=== PATIENT | female | born 1965 | race Caucasian/White ===

== ENCOUNTER 2022-05-26 08:20 | Emergency (ER) | payer SELFPAY ==
[2022-05-26 08:34] VITALS: BP 155/91; PULSE 71; RESP 18; TEMP 36.1; O2SAT 96; BMI 35.4
--- NOTE | 2022-05-26 08:54 | ED.ABDPAIN ---
HPI - Abdominal Pain General Chief Complaint: Abdominal Pain Stated Complaint: Stomach Pain Time Seen by Provider: 05/26/22 08:28 History of Present Illness HPI narrative: This 56-year-old female is Lao-speaking and needs grievance coordinator. Through the grievance coordinator she reports 2 weeks of abdominal pain and flank pain. She has symptoms of dysuria. She shows me notes from a clinic visit where she had her urine analyzed showing sign of infection with enterococcus faecalis. She has been taking penicillin but not improving. She reports some feeling warm and diaphoretic but has not measured her temperature. She arrives here with normal vital signs. Her blood pressure is a bit elevated. Related Data Home Medications Medication Instructions Recorded Confirmed amlodipine 5 mg tablet 5 mg PO DAILY 05/26/22 05/26/22 aspirin 81 mg tablet,delayed 81 mg PO DAILY 05/26/22 05/26/22 release (Adult Low Dose Aspirin) atorvastatin 80 mg tablet 80 mg PO DAILY 05/26/22 05/26/22 cetirizine 10 mg tablet 10 mg PO DAILY PRN 05/26/22 05/26/22 cholecalciferol (vitamin D3) 50 50 mcg PO DAILY 05/26/22 05/26/22 mcg (2,000 unit) capsule clobetasol 0.05 % topical cream 1 applic topical DAILY 05/26/22 05/26/22 clotrimazole-betamethasone 1 1 applic topical BID 05/26/22 05/26/22 %-0.05 % topical cream hydrochlorothiazide 25 mg tablet 25 mg PO DAILY 05/26/22 05/26/22 levothyroxine 125 mcg capsule 125 mcg PO DAILY 05/26/22 05/26/22 losartan 100 mg tablet (Cozaar) 100 mg PO DAILY 05/26/22 05/26/22 metformin 1,000 mg tablet 1,000 mg PO BID 05/26/22 05/26/22 metoprolol succinate 50 mg capsule 50 mg PO DAILY 05/26/22 05/26/22 sprinkle, ext. release 24 hr ([place] Sprinkle) nortriptyline 50 mg capsule 50 mg PO DAILY 05/26/22 05/26/22 sumatriptan succinate 50 mg tablet 50 mg PO Q2H PRN 05/26/22 05/26/22 (Imitrex) tacrolimus 0.1 % topical ointment 1 applic topical DAILY 05/26/22 05/26/22 vitamin B complex 1 cap PO DAILY 05/26/22 05/26/22 Previous Rx's Medication Instructions Recorded ketorolac 10 mg tablet 10 mg PO Q8H 5 days #15 tabs 05/26/22 ondansetron HCl 4 mg tablet 4 mg PO Q6H #20 tabs 05/26/22 Allergies Allergy/AdvReac Type Severity Reaction Status Date / Time Iodinated Contrast Media Allergy Mild Hives Verified 05/26/22 10:34 Review of Systems Status of ROS Reports: 10 or more systems reviewed and unremarkable except as noted in History and below Narrative Constitutional: No fevers, no weight gain or loss. Eyes: No discharge. No vision changes. HENT: No congestion, no sore throat, no ear pain. Cardiovascular: No chest pain, no palpitations. Respiratory: No shortness of breath, no wheezes, no cough. Gastrointestinal: No vomiting, no diarrhea. Lower abdominal pain. Genitourinary: Dysuria symptoms. Musculoskeletal: Normal range of motion. Skin: No rashes, no pruritis. Neurological: No dizziness, weakness, sensory change, speech change. Endo/Heme/Allergies: No bruising or bleeding. No polydipsia. Pysch: no suicidality, no anxiety, no insomnia. All other systems reviewed and are negative. Exam Narrative: Exam Narrative: Constitutional: Well-developed, well-nourished, no acute distress. HEENT: Normocephalic, atraumatic. Neck: Normal range of motion. Nontender. Supple. Heart: Regular. No murmurs. Normal rate. Intact distal pulses. Lungs: Clear to auscultation. No chest discomfort. No wheezes, rhonchi, or rales. Abdomen: Normal bowel sounds. No rebound tenderness. Tenderness in the lower abdomen and the flank region bilaterally. Genitalia: Deferred. Back: No midline tenderness. Normal range of motion. Extremities: Normal range of motion. No injury. Skin: Intact. No rash. Warm. No erythema or pallor. Neurologic: No altered sensation. No weakness. Alert and oriented. Psychiatric: No suicidality. No anxiety or depression. No insomnia. Nursing notes and vitals signs are reviewed. Const: Vital Signs, click to edit/add: Vital Signs - 24 hr 05/26/22 08:34 Temperature 97.0 F L Pulse Rate [Right Pulse Oximeter] 71 Respiratory Rate 18 Blood Pressure [Ri ght Upper Arm] 155/91 H Pulse Oximetry 96 Oxygen Delivery Me thod Room Air Course Vital Signs Vital signs: Initial Vital Signs Temperature 97.0 F L 05/26/22 08:34 Temperature Source Temporal Artery Scan 05/26/22 08:34 Pulse Rate 71 05/26/22 08:34 Respiratory Rate 18 05/26/22 08:34 Blood Pressure 155/91 H 05/26/22 08:34 Blood Pressure Mean 112 05/26/22 08:34 Blood Pressure Position Sitting 05/26/22 08:34 Pulse Oximetry 96 05/26/22 08:34 Oxygen Delivery Method 05/26/22 08:34 Vital Signs Temperature 97.0 F L 05/26/22 08:34 Pulse Rate 71 05/26/22 08:34 Respiratory Rate 18 05/26/22 08:34 Blood Pressure 155/91 H 05/26/22 08:34 Pulse Oximetry 96 05/26/22 08:34 Oxygen Delivery Method 05/26/22 08:34 Temperature 97.0 F L 05/26/22 08:34 Pulse Rate 71 05/26/22 08:34 Respiratory Rate 18 05/26/22 08:34 Blood Pressure 155/91 H 05/26/22 08:34 Pulse Oximetry 96 05/26/22 08:34 Oxygen Delivery Method 05/26/22 08:34 MDM - Abdominal Pain MDM Narrative Medical decision making narrative: This patient comes in reporting abdominal pain and flank pain as described above. A urinalysis was acquired initially which showed no sign of urinary tract infection or other abnormality. The patient then had an IV established and received medicines for nausea and pain including Zofran and Toradol. This brought relief to her symptoms. Lab results returned with normal findings and a CT scan without contrast also shows no acute abnormalities. These results are communicated with the patient and reassurance is were given in that regard. The patient received prescriptions for Toradol and Zofran and is encouraged to follow-up with her primary physician or return to the emergency department if pain is persistent or worsening. Lab Data Labs: Lab Results 05/26/22 05/26/22 05/26/22 Range/Units 08:53 10:35 10:35 WBC 5.67 (4.50-11.00) K/uL RBC 5.00 (4.00-5.20) m/uL Hgb 14.6 (12.0-16.0) gm/dL Hct 43.8 (33.0-51.0) % MCV 88 (80-100) fL MCH 29 (26-34) pg MCHC 33 (32-36) gm/dL RDW Coeff of [place] 12.4 (11.5-15.5) % Plt Count 424 (140-440) K/uL Neut % (Auto) 51.3 (42.0-72.0) % Lymph % (Auto) 40.2 (20-44) % [place] % (Auto) 6.0 (0.0-11.0) % Eos % (Auto) 1.4 (0.0-7.0) % Baso % (Auto) 0.7 (0.0-3.0) % Neut # (Auto) 2.91 (1.7-7.0) K/uL Lymph # (Auto) 2.28 (0.90-2.90) K/uL [place] # (Auto) 0.30 (0.00-0.90) K/UL Eos # (Auto) 0.08 (0.00-0.50) K/uL Baso # (Auto) 0.04 (0.00-0.30) K/uL Abs Immat Gran (auto) 0.02 (0.00-0.30) K/uL Sodium 138 (135-149) mmol/L Potassium 3.7 (3.6-5.1) mmol/L Chloride 99 (96-114) mmol/L Carbon Dioxide 32 (20-32) mmol/L BUN 18 (7-30) mg/dL Creatinine 0.5 (0.5-1.5) mg/dL Estimated Creat Clear 101.45 Estimated GFR 109 ml/min Glucose 113 (60-115) mg/dL Calcium 10.3 (8.4-10.6) mg/dL Urine Color Yellow (Yellow) Urine Appearance Clear (Clear) Urine pH 8.0 (5.0-8.5) Ur Specific [place] 1.020 (1.000-1.030) Urine Protein Negative (Negative) Urine Glucose (UA) Negative (Negative) Urine Ketones Negative (Negative) Urine Blood Negative (Negative) Urine Nitrite Negative (Negative) Urine Bilirubin Negative (Negative) Urine Urobilinogen 0.2 (0.2-1.0) Ur Leukocyte Esterase Negative (Negative) Urine RBC 0-2 (0-2) Urine WBC 0-2 (0-5) Ur Squamous Epith Cells Few (None-Few) Urine Bacteria None (None) Imaging Data CT scan - abdomen: Radiologist's impression: 1. No acute findings in the abdomen or pelvis. Discharge Plan Discharge Clinical Impression: Abdominal pain Patient Disposition: Home, Self-Care Condition: Stable Instructions: Abdominal Pain (ED) Additional Instructions: Take medication as needed and indicated. Follow up with primary physician if pain is persistent. Return if worsening. Prescriptions: New ondansetron HCl 4 mg tablet 4 mg PO Q6H Qty: 20 0RF ketorolac 10 mg tablet 10 mg PO Q8H 5 Days Qty: 15 0RF No Action atorvastatin 80 mg tablet 80 mg PO DAILY hydrochlorothiazide 25 mg tablet 25 mg PO DAILY nortriptyline 50 mg capsule 50 mg PO DAILY [place] Sprinkle 50 mg capsule,sprinkle,ER 24hr 50 mg PO DAILY amlodipine 5 mg tablet 5 mg PO DAILY losartan [Cozaar] 100 mg tablet 100 mg PO DAILY aspirin [Adult Low Dose Aspirin] 81 mg tablet,delayed release (DR/EC) 81 mg PO DAILY vitamin B complex Capsule 1 cap PO DAILY tacrolimus 0.1 % ointment 1 applic topical DAILY clotrimazole-betamethasone 1-0.05 % cream 1 applic topical BID clobetasol 0.05 % cream 1 applic topical DAILY cholecalciferol (vitamin D3) 50 mcg (2,000 unit) capsule 50 mcg PO DAILY cetirizine 10 mg tablet 10 mg PO DAILY PRN metformin 1,000 mg tablet 1,000 mg PO BID sumatriptan succinate [Imitrex] 50 mg tablet 50 mg PO Q2H PRN Rx Instructions: do not exceed 4 doses per 24 hrs levothyroxine 125 mcg capsule 125 mcg PO DAILY Follow Up/Referrals: Provider,Not a Local [Primary Care Provider] - Stand Alone Forms: [employer] Info Instructions
[2022-05-26 09:26] LABS: Appearance Urine Clear (Clear); Bilirubin Urine Negative (Negative); Blood Urine Negative (Negative); Color Urine Yellow (Yellow); Glucose Urine Negative (Negative); Ketones Urine Negative (Negative); Leukocyte Esterase Urine Negative (Negative); Nitrite Urine Negative (Negative); Protein Urine Negative (Negative); Urobilinogen Urine 0.2 (0.2-1.0)
[2022-05-26 09:41] LABS: RBC Urine 0-2 (0-2); Squamous Epithelial Cell Urine Few (None-Few); WBC Urine 0-2 (0-5)
--- NOTE | 2022-05-26 09:52 | CRLHL7_ITS ---
For Patients: As a result of the Century Cures Act, medical imaging exams and procedure reports are released immediately into your electronic medical record. You may view this report before your referring provider. If you have questions, please contact your health care provider. Indication: Lower abdominal pain Technique: Contrast CT abdomen and pelvis Comparison: CT abdomen and pelvis 03/09/2019 Findings: Heart size is normal. There is no pericardial effusion. Basilar atelectasis tiny low-attenuation lesion in the liver. Too small to characterize. Hepatomegaly measuring 20 cm. Cholecystectomy. Abundant stool in the colon. There is diverticulosis bowel appears unremarkable. Normal appendix kidneys appear unremarkable. The urinary bladder is unremarkable. Fat containing inguinal hernias. No suspicious bony lesions are seen. Impression: 1. No acute findings in the abdomen or pelvis. Hepatomegaly Please note that all CT scans at this facility use dose modulation, iterative reconstruction, and/or weight-based dosing when appropriate to reduce radiation dose to as low as reasonably achievable. Dictated by Pauline Reynolds MD @ 05/26/2022 11:03:08 AM (Electronically Signed)
[2022-05-26] MEDS: ONDANSETRON 2 MG/ML inj 4 MG IVP (10:40)
[2022-05-26] MEDS: KETOROLAC 30 MG/ML inj IVP (10:41)
[2022-05-26 10:49] LABS: Basophils Absolute Auto 0.04 K/uL (0.00-0.30); Basophils Percent Auto 0.7 % (0.0-3.0); Eosinophils Absolute Auto 0.08 K/uL (0.00-0.50); Eosinophils Percent Auto 1.4 % (0.0-7.0); Hematocrit 43.8 % (33.0-51.0); Hemoglobin* 14.6 gm/dL (12.0-16.0); Immature Granulocytes Abs Auto 0.02 K/uL (0.00-0.30); Lymphocytes Absolute Auto 2.28 K/uL (0.90-2.90); Lymphocytes Percent Auto 40.2 % (20-44); Mean Corpuscular HGB Conc 33 gm/dL (32-36); Mean Corpuscular Hemoglobin 29 pg (26-34); Mean Corpuscular Volume 88 fL (80-100); Neutrophils Absolute Auto 2.91 K/uL (1.7-7.0); Neutrophils Percent Auto 51.3 % (42.0-72.0); Platelet Count* 424 K/uL (140-440); RDW Coefficient of Variation % 12.4 % (11.5-15.5); White Blood Count* 5.67 K/uL (4.50-11.00)
[2022-05-26 10:52] LABS: Slide Review Reflex No
[2022-05-26 11:04] LABS: Chloride* 99 mmol/L (96-114)
[2022-05-26 11:05] LABS: Potassium* 3.7 mmol/L (3.6-5.1); Sodium* 138 mmol/L (135-149)
[2022-05-26 11:07] LABS: Carbon Dioxide* 32 mmol/L (20-32); Creatinine* 0.5 mg/dL (0.5-1.5); Est. Creatinine Clearance* 101.45; Estimated Glomerular Filt Rate 109 ml/min
[2022-05-26 11:08] LABS: Blood Urea Nitrogen* 18 mg/dL (7-30); Calcium* 10.3 mg/dL (8.4-10.6); Glucose* 113 mg/dL (60-115)
== END 2022-05-26 11:49 | disposition home or self-care (01) ==
PROVIDERS: Emergency Provider Emergency Medicine Emergency Medical Services
DX: R10.9 Unspecified abdominal pain (principal)
CPT/HCPCS: 36415; 74176; 80048; 81001; 85025; 96374; 96375; 99284; J1885; J2405

== ENCOUNTER 2022-09-26 18:30 | Emergency (ER) | payer SELFPAY ==
[2022-09-26 18:44] VITALS: BP 150/85; PULSE 75; RESP 18; TEMP 36.2; O2SAT 95
--- NOTE | 2022-09-26 19:43 | CRLHL7_ITS ---
For Patients: As a result of the Century Cures Act, medical imaging exams and procedure reports are released immediately into your electronic medical record. You may view this report before your referring provider. If you have questions, please contact your health care provider. INDICATION: Abdominal pain. TECHNIQUE: CT abdomen and pelvis without contrast. COMPARISON: May 26, 2022. FINDINGS: Lower chest: Scattered dependent atelectasis. Liver: Mild hepatomegaly with steatosis. Gallbladder and bile ducts: Cholecystectomy. Pancreas: Unremarkable. No mass or inflammation. Spleen: Normal in size. No masses. Adrenal glands: Normal in size. No nodules. Kidneys: Normal in size. No suspicious masses, stones, or hydronephrosis. GI tract: Mild colonic stool burden. Normal in caliber. No sign of mass or inflammation. Normal appendix. Vasculature: Abdominal aorta is normal in caliber. Lymph nodes: No lymphadenopathy. Peritoneum/Abdominal Wall: Tiny left fat containing inguinal hernia. No sign of mass or infiltration. No free air or significant free fluid. Pelvis: Unremarkable. No pelvic masses. Bones: Degenerative changes. IMPRESSION: No acute intra-abdominal/pelvic abnormality or significant change when compared to prior study. Persistent hepatomegaly with steatosis. Please note that all CT scans at this facility use dose modulation, iterative reconstruction, and/or weight-based dosing when appropriate to reduce radiation dose to as low as reasonably achievable. Dictated by Keny Greer MD @ 09/26/2022 8:37:14 PM (Electronically Signed)
--- NOTE | 2022-09-26 19:48 | ED_ITS ---
HPI - General Adult General Time Seen by Provider: 19:48 <Willam Ambrosio MD - Last Filed: 09/26/22 20:44> Date Seen: 09/26/22 <Willam Ambrosio MD - Last Filed: 09/26/22 20:44> Chief complaint: Abdominal Pain <Willam Ambrosio MD - Last Filed: 09/26/22 20:44> Stated complaint: Upper abdominal pain <Willam Ambrosio MD - Last Filed: 09/26/22 20:44> Time Seen by Provider: 09/26/22 19:43 <Willam Ambrosio MD - Last Filed: 09/26/22 20:44> Source: patient <Willam Ambrosio MD - Last Filed: 09/26/22 20:44> Mode of arrival: ambulatory <Willam Ambrosio MD - Last Filed: 09/26/22 20:44> Limitations: no limitations <Willam Ambrosio MD - Last Filed: 09/26/22 20:44> History of Present Illness HPI narrative: Patient is a 48-year-old female who through an staff interpreter reports that she has had some stomach upset diffusely from her epigastrium down rib periumbilical area she states she has been spitting up little strike streaks of sputum that have blood in it. She has had this before happened where was thought she had an ulcer was put on Prilosec. She is back on aspirin now if she thinks she had some kind of TIA episode in the past. I do not see record of that. The patient at this point feels pretty well other than some abdominal discomfort. She had a CT scan done in May that was unremarkable. She complains of pain today spitting up with the sputum streaked blood and no lightheadedness dizziness no chest pain, no breathing issues. No extremity problems no swelling no history of bleeding or problem bleeding problems patient is on multiple medications that are reviewed she has been on aspirin. <Willam Ambrosio MD - Last Filed: 09/26/22 20:44> Related Data Home medications: Home Medications Medication Instructions Recorded Confirmed amlodipine 5 mg tablet 5 mg PO DAILY 05/26/22 05/26/22 aspirin 81 mg tablet,delayed 81 mg PO DAILY 05/26/22 05/26/22 release (Adult Low Dose Aspirin) atorvastatin 80 mg tablet 80 mg PO DAILY 05/26/22 05/26/22 cetirizine 10 mg tablet 10 mg PO DAILY PRN 05/26/22 05/26/22 cholecalciferol (vitamin D3) 50 50 mcg PO DAILY 05/26/22 05/26/22 mcg (2,000 unit) capsule clobetasol 0.05 % topical cream 1 applic topical DAILY 05/26/22 05/26/22 clotrimazole-betamethasone 1 1 applic topical BID 05/26/22 05/26/22 %-0.05 % topical cream hydrochlorothiazide 25 mg tablet 25 mg PO DAILY 05/26/22 05/26/22 levothyroxine 125 mcg capsule 125 mcg PO DAILY 05/26/22 05/26/22 losartan 100 mg tablet (Cozaar) 100 mg PO DAILY 05/26/22 05/26/22 metformin 1,000 mg tablet 1,000 mg PO BID 05/26/22 05/26/22 metoprolol succinate 50 mg capsule 50 mg PO DAILY 05/26/22 05/26/22 sprinkle, ext. release 24 hr (Kapspargo Sprinkle) nortriptyline 50 mg capsule 50 mg PO DAILY 05/26/22 05/26/22 sumatriptan succinate 50 mg tablet 50 mg PO Q2H PRN 05/26/22 05/26/22 (Imitrex) tacrolimus 0.1 % topical ointment 1 applic topical DAILY 05/26/22 05/26/22 vitamin B complex 1 cap PO DAILY 05/26/22 05/26/22 Previous Rx's Medication Instructions Recorded ketorolac 10 mg tablet 10 mg PO Q8H 5 days #15 tabs 05/26/22 ondansetron HCl 4 mg tablet 4 mg PO Q6H #20 tabs 05/26/22 <Willam Ambrosio MD - Last Filed: 09/26/22 20:44> Allergies/adverse reactions: Allergies Allergy/AdvReac Type Severity Reaction Status Date / Time Iodinated Contrast Media Allergy Mild Hives Verified 05/26/22 10:34 <Willam Ambrosio MD - Last Filed: 09/26/22 20:44> Review of Systems Status of ROS: Reports: 10 or more systems reviewed and unremarkable except as noted in History and below <Willam Ambrosio MD - Last Filed: 09/26/22 20:44> [facility] Social History: Social History Smoking Status: Never smoker Do you use any of these nicotine containing products: None How often do you have a drink containing alcohol: never AUDIT-C Alcohol total score: 0 Non-prescribed substance use: denies use <Willam Ambrosio MD - Last Filed: 09/26/22 20:44> Exam Narrative: Exam Narrative: Objective: Patient is alert orient x3 very pleasant Vital signs are unremarkable slightly hypertensive HEENT unremarkable no skin pale conjunctiva neck is supple chest is clear pulse regular abdomen benign soft mild epigastric tenderness and mild periumbilical tenderness. No masses no rebound. Extremities normal Neurologic nonfocal Good peripheral perfusion noted <Willam Ambrosio MD - Last Filed: 09/26/22 20:44> Const: Vital Signs, click to edit/add: Vital Signs - 24 hr 09/26/22 18:44 09/26/22 22:55 Temperature 97.1 F L Pulse Rate [Right Pulse Oximeter] 75 74 Respiratory Rate 18 18 Blood Pressure [Ri ght Upper Arm] 150/85 H 145/72 H Pulse Oximetry 95 95 Oxygen Delivery Me thod Room Air Room Air <Willam Ambrosio MD - Last Filed: 09/26/22 20:44> Vital Signs, click to edit/add: Vital Signs - 24 hr 09/26/22 18:44 09/26/22 22:55 Temperature 97.1 F L Pulse Rate [Right Pulse Oximeter] 75 74 Respiratory Rate 18 18 Blood Pressure [Ri ght Upper Arm] 150/85 H 145/72 H Pulse Oximetry 95 95 Oxygen Delivery Me thod Room Air Room Air <Derrick Nazario MD - Last Filed: 09/27/22 03:06> Course Vital Signs Vital signs: Initial Vital Signs Temperature 97.1 F L 09/26/22 18:44 Temperature Source Temporal Artery Scan 09/26/22 18:44 Pulse Rate 75 09/26/22 18:44 Respiratory Rate 18 09/26/22 18:44 Blood Pressure 150/85 H 09/26/22 18:44 Blood Pressure Mean 106 09/26/22 18:44 Blood Pressure Position Sitting 09/26/22 18:44 Pulse Oximetry 95 09/26/22 18:44 Oxygen Delivery Method 09/26/22 18:44 Vital Signs Temperature 97.1 F L 09/26/22 18:44 Pulse Rate 75 09/26/22 18:44 Respiratory Rate 18 09/26/22 18:44 Blood Pressure 150/85 H 09/26/22 18:44 Pulse Oximetry 95 09/26/22 18:44 Oxygen Delivery Method 09/26/22 18:44 Temperature 97.1 F L 09/26/22 18:44 Pulse Rate 74 09/26/22 22:55 Respiratory Rate 18 09/26/22 22:55 Blood Pressure 145/72 H 09/26/22 22:55 Pulse Oximetry 95 09/26/22 22:55 Oxygen Delivery Method 09/26/22 22:55 <Willam Ambrosio MD - Last Filed: 09/26/22 20:44> Initial Vital Signs Temperature 97.1 F L 09/26/22 18:44 Temperature Source Temporal Artery Scan 09/26/22 18:44 Pulse Rate 75 09/26/22 18:44 Respiratory Rate 18 09/26/22 18:44 Blood Pressure 150/85 H 09/26/22 18:44 Blood Pressure Mean 106 09/26/22 18:44 Blood Pressure Position Sitting 09/26/22 18:44 Pulse Oximetry 95 09/26/22 18:44 Oxygen Delivery Method 09/26/22 18:44 Vital Signs Temperature 97.1 F L 09/26/22 18:44 Pulse Rate 75 09/26/22 18:44 Respiratory Rate 18 09/26/22 18:44 Blood Pressure 150/85 H 09/26/22 18:44 Pulse Oximetry 95 09/26/22 18:44 Oxygen Delivery Method 09/26/22 18:44 Temperature 97.1 F L 09/26/22 18:44 Pulse Rate 74 09/26/22 22:55 Respiratory Rate 18 09/26/22 22:55 Blood Pressure 145/72 H 09/26/22 22:55 Pulse Oximetry 95 09/26/22 22:55 Oxygen Delivery Method 09/26/22 22:55 <Derrick Nazario MD - Last Filed: 09/27/22 03:06> Medical Decision Making MDM Narrative Medical decision making narrative: Patient is a 48-year-old female who through an staff interpreter reports she has had what sounds like some upper gastrointestinal bleeding. But she has had a diagnosed per presumed diagnosis of ulcer in the past been on Prilosec, she is now back on aspirin. I think at this point given her abdominal pain to be reasonable to repeat her labs, make sure her gallbladder labs look reassuring including liver function tests amylase. Will also check a CBC herminia ctrolytes and a CT scan of her abdomen and pelvis . she has had a tubal ligation. Will start the workup above if this all comes back unrevealing I think she could probably be discharged on Prilosec and would hold her aspirin. And follow-up with primary care doctor within the next few days Addendum: The patient has a negative CT scan, Dr. Gomez will follow up the labs, these are normal I would have her hold her aspirin, start the Prilosec 20 b.i.d. and see her doctor in a couple of days light activity. <Willam Ambrosio MD - Last Filed: 09/26/22 20:44> Patient is a 48-year-old female who through an staff interpreter reports she has had what sounds like some upper gastrointestinal bleeding. But she has had a diagnosed per presumed diagnosis of ulcer in the past been on Prilosec, she is now back on aspirin. I think at this point given her abdominal pain to be reasonable to repeat her labs, make sure her gallbladder labs look reassuring including liver function tests amylase. Will also check a CBC electrolytes and a CT scan of her abdomen and pelvis . she has had a tubal ligation. Will start the workup above if this all comes back unrevealing I think she could probably be discharged on Prilosec and would hold her aspirin. And follow-up with primary care doctor within the next few days Addendum: The patient has a negative CT scan, Dr. Gomez will follow up the labs, these are normal I would have her hold her aspirin, start the Prilosec 20 b.i.d. and see her doctor in a couple of days light activity. Review of labs shows them to be mostly unremarkable. Potassium was 3.3 which Ms. Saleem says is not necessarily atypical noting that is often a little low. I do review some of her symptoms. This epigastric discomfort it has occurred before. She has been told for pain is to take what looks to be a 10 mg capsule of omeprazole. She does not take it regularly. CT imaging and generalized mily wel pain along with what I initially understood was some rectal passage bleeding, suggests constipation. She does acknowledge she does struggle with this sometimes. Significant stressor this last year was the of their son Gilmer. She does receive cares from [facility] in [facility] and is uninsured for healthcare. I would anticipate her following up in primary care after 2 weeks of regular PPI use. Will work also to soften stools. Possible that some of her pain is also related to fatty liver. <Derrick Nazario MD - Last Filed: 09/27/22 03:06> Lab Data Labs: Lab Results 09/26/22 09/26/22 09/26/22 Range/Units 20:20 20:20 20:20 WBC 6.88 (4.50-11.00) K/uL RBC 4.92 (4.00-5.20) m/uL Hgb 14.4 (12.0-16.0) gm/dL Hct 42.6 (33.0-51.0) % MCV 87 (80-100) fL MCH 29 (26-34) pg MCHC 34 (32-36) gm/dL RDW Coeff of [place] 12.0 (11.5-15.5) % Plt Count 379 (140-440) K/uL Neut % (Auto) 47.3 (42.0-72.0) % Lymph % (Auto) 42.9 (20-44) % [place] % (Auto) 7.1 (0.0-11.0) % Eos % (Auto) 1.9 (0.0-7.0) % Baso % (Auto) 0.7 (0.0-3.0) % Neut # (Auto) 3.25 (1.7-7.0) K/uL Lymph # (Auto) 2.95 H (0.90-2.90) K/uL [place] # (Auto) 0.50 (0.00-0.90) K/UL Eos # (Auto) 0.13 (0.00-0.50) K/uL Baso # (Auto) 0.05 (0.00-0.30) K/uL INR 0.93 (0.91-1.10) APTT 37 H (23-33) Seconds Sodium 140 (135-149) mmol/L Potassium 3.3 L (3.6-5.1) mmol/L Chloride 103 (96-114) mmol/L Carbon Dioxide 29 (20-32) mmol/L BUN 20 (7-30) mg/dL Creatinine 0.4 L (0.5-1.5) mg/dL Estimated GFR 115 ml/min Glucose 104 (60-115) mg/dL Calcium 10.6 (8.4-10.6) mg/dL Total Bilirubin 1.1 (0.1-1.5) mg/dL Direct Bilirubin 0.1 (0.0-0.5) mg/dL AST 35 (12-35) U/L ALT 48 H (4-35) U/L Alkaline Phosphatase 93 (40-150) U/L C-Reactive Protein < 0.5 L (0.5-1.0) mg/dL Total Protein 7.9 (6.0-8.3) g/dL Albumin 4.9 (3.3-5.0) g/dL Amylase 77 (18-89) U/L <Willam Ambrosio MD - Last Filed: 09/26/22 20:44> Lab Results 09/26/22 09/26/22 09/26/22 Range/Units 20:20 20:20 20:20 WBC 6.88 (4.50-11.00) K/uL RBC 4.92 (4.00-5.20) m/uL Hgb 14.4 (12.0-16.0) gm/dL Hct 42.6 (33.0-51.0) % MCV 87 (80-100) fL MCH 29 (26-34) pg MCHC 34 (32-36) gm/dL RDW Coeff of [place] 12.0 (11.5-15.5) % Plt Count 379 (140-440) K/uL Neut % (Auto) 47.3 (42.0-72.0) % Lymph % (Auto) 42.9 (20-44) % [place] % (Auto) 7.1 (0.0-11.0) % Eos % (Auto) 1.9 (0.0-7.0) % Baso % (Auto) 0.7 (0.0-3.0) % Neut # (Auto) 3.25 (1.7-7.0) K/uL Lymph # (Auto) 2.95 H (0.90-2.90) K/uL [place] # (Auto) 0.50 (0.00-0.90) K/UL Eos # (Auto) 0.13 (0.00-0.50) K/uL Baso # (Auto) 0.05 (0.00-0.30) K/uL INR 0.93 (0.91-1.10) APTT 37 H (23-33) Seconds Sodium 140 (135-149) mmol/L Potassium 3.3 L (3.6-5.1) mmol/L Chloride 103 (96-114) mmol/L Carbon Dioxide 29 (20-32) mmol/L BUN 20 (7-30) mg/dL Creatinine 0.4 L (0.5-1.5) mg/dL Estimated GFR 115 ml/min Glucose 104 (60-115) mg/dL Calcium 10.6 (8.4-10.6) mg/dL Total Bilirubin 1.1 (0.1-1.5) mg/dL Direct Bilirubin 0.1 (0.0-0.5) mg/dL AST 35 (12-35) U/L ALT 48 H (4-35) U/L Alkaline Phosphatase 93 (40-150) U/L C-Reactive Protein < 0.5 L (0.5-1.0) mg/dL Total Protein 7.9 (6.0-8.3) g/dL Albumin 4.9 (3.3-5.0) g/dL Amylase 77 (18-89) U/L <Derrick Nazario MD - Last Filed: 09/27/22 03:06> Discharge Plan Discharge Clinical Impression: Abdominal pain, Constipation, Gastritis <Willam Ambrosio MD - Last Filed: 09/26/22 20:44> Patient Disposition: Home w/ Parent or Adult <Willam Ambrosio MD - Last Filed: 09/26/22 20:44> Condition: Stable <Willam Ambrosio MD - Last Filed: 09/26/22 20:44> Additional Instructions: Don't take aspirin for the next week. Avoid ibuprofen and naproxen for now as well if possible. All of these can irritate your stomach. It sounds as though you should continue though over the long-term with aspirin. Take your Prilosec (omeprazole) 20 mg 2 times a day for the next 2 weeks. If you take your 10 mg pills, take 4 over the course of the day. You can purchase more [id number] if necessary. You might need to be screened for H pylori which you can discuss with your primary care provider. For breakthrough burning pain in your upper abdomen, consider famotidine or liquid antacid/anti-gas for more immediate relief. Follow-up with primary care provider at the end of this 2 week period or sooner if you are becoming more uncomfortable, bleeding is increasing, repeated vomiting. Your abdominal discomfort might also be helped by increasing her water intake. Try to drink 2-3 L of water daily. I would also consider taking MiraLax equivalent, 2 doses by noon and adjust to stool consistency. No tome aspirina louis la pr?xima semana. Evite el ibuprofeno y el naproxeno por ahora tambi?n si es posible. Todo esto puede irritar [place] est?slava. Parece que debe continuar a shobha plazo con aspirina. [place] Prilosec (omeprazol) 20 mg 2 veces al d?a louis las pr?ximas 2 semanas. Si shadi debbie p?ldoras de 10 mg, tome 4 en el transcurso del d?a. Puede comprar m?s sin receta si es necesario. Es posible que deba hacerse bharat prueba de detecci?n de H. pylori, lo cual puede analizar con [place] proveedor de atenci?n primaria. Para el dolor ardiente irruptivo en la parte superior del abdomen, considere la famotidina o el anti?cido l?quido / antigas para un alivio m?s inmediato. Seguimiento con el proveedor de atenci?n primaria al final de trent per?odo de 2 semanas o antes si se siente m?s inc?modo, el sangrado est? aumentando, v?mitos repetidos. [place] malestar abdominal tambi?n podr?a ser ayudado por el aumento de [place] consumo de agua. Trate de beber 2-3 L de agua al d?a. Tambi?n considerar?a jasen MiraLax equivalente, 2 dosis antes del mediod?a y ajustarme a la consistencia de las heces. <Willam Ambrosio MD - Last Filed: 09/26/22 20:44> Activity Level: Light activity <Willam Ambrosio MD - Last Filed: 09/26/22 20:44> Light activity <Derrick Nazario MD - Last Filed: 09/27/22 03:06> Discharge Diet: Full Liquid <Willam Ambrosio MD - Last Filed: 09/26/22 20:44> Full Liquid <Derrick Nazario MD - Last Filed: 09/27/22 03:06> Prescriptions: No Action atorvastatin 80 mg tablet 80 mg PO DAILY hydrochlorothiazide 25 mg tablet 25 mg PO DAILY nortriptyline 50 mg capsule 50 mg PO DAILY Kapspargo Sprinkle 50 mg capsule,sprinkle,ER 24hr 50 mg PO DAILY amlodipine 5 mg tablet 5 mg PO DAILY losartan [Cozaar] 100 mg tablet 100 mg PO DAILY aspirin [Adult Low Dose Aspirin] 81 mg tablet,delayed release (DR/EC) 81 mg PO DAILY vitamin B complex Capsule 1 cap PO DAILY tacrolimus 0.1 % ointment 1 applic topical DAILY clotrimazole-betamethasone 1-0.05 % cream 1 applic topical BID clobetasol 0.05 % cream 1 applic topical DAILY cholecalciferol (vitamin D3) 50 mcg (2,000 unit) capsule 50 mcg PO DAILY cetirizine 10 mg tablet 10 mg PO DAILY PRN metformin 1,000 mg tablet 1,000 mg PO BID sumatriptan succinate [Imitrex] 50 mg tablet 50 mg PO Q2H PRN Rx Instructions: do not exceed 4 doses per 24 hrs levothyroxine 125 mcg capsule 125 mcg PO DAILY ondansetron HCl 4 mg tablet 4 mg PO Q6H Qty: 20 0RF ketorolac 10 mg tablet 10 mg PO Q8H 5 Days Qty: 15 0RF <Willam Ambrosio MD - Last Filed: 09/26/22 20:44> Follow Up/Referrals: Provider,Not a Local [Primary Care Provider] - <Willam Ambrosio MD - Last Filed: 09/26/22 20:44> Stand Alone Forms: [facility] Info Instructions <Willam Ambrosio MD - Last Filed: 09/26/22 20:44>
[2022-09-26] MEDS: PANTOPRAZOLE SODIUM 40 MG INJ IVP (20:27)
[2022-09-26] MEDS: 0.9 % SODIUM CHLORIDE 1000 ml 1,000 ML 6000 ML IV (20:27)
[2022-09-26 20:37] LABS: Basophils Absolute Auto 0.05 K/uL (0.00-0.30); Basophils Percent Auto 0.7 % (0.0-3.0); Eosinophils Absolute Auto 0.13 K/uL (0.00-0.50); Eosinophils Percent Auto 1.9 % (0.0-7.0); Hematocrit 42.6 % (33.0-51.0); Hemoglobin* 14.4 gm/dL (12.0-16.0); Immature Granulocytes Abs Auto 0.01 K/uL (0.00-0.30); Immature Granulocytes Pct Auto 0.1 %; Lymphocytes Absolute Auto 2.95 K/uL (0.90-2.90); Lymphocytes Percent Auto 42.9 % (20-44); Mean Corpuscular HGB Conc 34 gm/dL (32-36); Mean Corpuscular Hemoglobin 29 pg (26-34); Mean Corpuscular Volume 87 fL (80-100); Monocytes Percent Auto 7.1 % (0.0-11.0); Neutrophils Absolute Auto 3.25 K/uL (1.7-7.0); Neutrophils Percent Auto 47.3 % (42.0-72.0); Platelet Count* 379 K/uL (140-440); Red Blood Count 4.92 m/uL (4.00-5.20); White Blood Count* 6.88 K/uL (4.50-11.00)
[2022-09-26 20:53] LABS: Albumin* 4.9 g/dL (3.3-5.0); Chloride* 103 mmol/L (96-114); Slide Review Reflex No; Sodium* 140 mmol/L (135-149)
[2022-09-26 20:54] LABS: Potassium* 3.3 mmol/L (3.6-5.1)
[2022-09-26 20:56] LABS: Amylase* 77 U/L (18-89)
[2022-09-26 20:57] LABS: Alanine Aminotransferase* 48 U/L (4-35); Alkaline Phosphatase* 93 U/L (40-150); Aspartate Amino Transferase* 35 U/L (12-35); Bilirubin Direct* 0.1 mg/dL (0.0-0.5); Bilirubin Total* 1.1 mg/dL (0.1-1.5); Blood Urea Nitrogen* 20 mg/dL (7-30); Calcium* 10.6 mg/dL (8.4-10.6); Carbon Dioxide* 29 mmol/L (20-32); Creatinine* 0.4 mg/dL (0.5-1.5); Estimated Glomerular Filt Rate 115 ml/min; Glucose* 104 mg/dL (60-115); INR 0.93 (0.91-1.10); Total Protein* 7.9 g/dL (6.0-8.3)
[2022-09-26 20:58] LABS: Partial Thromboplastin Time* 37 Seconds (23-33)
[2022-09-26 21:01] LABS: C Reactive Protein* < 0.5 mg/dL (0.5-1.0)
[2022-09-26 22:55] VITALS: BP 145/72; PULSE 74; RESP 18; O2SAT 95
== END 2022-09-26 22:57 | disposition home or self-care (01) ==
LOC: ED 20:03
PROVIDERS: Emergency Provider Family Medicine
DX: R10.9 Unspecified abdominal pain (principal); K59.00 Constipation, unspecified; K29.70 Gastritis, unspecified, without bleeding
CPT/HCPCS: 36415; 74176; 80048; 80076; 82150; 85025; 85610; 85730; 86140; 96374; 99283; 99284; C9113; J7030

== ENCOUNTER 2023-07-29 16:42 | Emergency (ER) | payer OTHER, SELFPAY ==
[2023-07-29 17:27] VITALS: BP 118/77; PULSE 76; RESP 16; TEMP 36.1; O2SAT 98
--- NOTE | 2023-07-29 18:33 | ED.GENADULT ---
HPI - General Adult General Date Seen: 07/29/23 Chief complaint: Eye Problems Stated complaint: eye pain Time Seen by Provider: 07/29/23 17:48 Source: patient and humanities instructor Mode of arrival: ambulatory Limitations: language barrier History of Present Illness HPI narrative: Patient is a 57-year-old woman, Ecuadorean speaking, who presents for evaluation of eye symptoms. She says 3 days ago she noted black spots in her vision, the seem to move around, does not describe complete vision loss or field cut. Yesterday she started to get pain in the eye as well. She was diagnosed with COVID a couple of weeks ago, she still has little bit of a cough and coughing makes the eye pain worse. She denies any trauma to the eye. She has noted a little bit of redness, no mattering. Denies history of problems with her eyes, she has reading glasses but otherwise no visual correction. Multiple medical problems including diabetes, hypertension, high cholesterol and migraine. Related Data Home Medications Medication Instructions Recorded Confirmed amlodipine 5 mg tablet 5 mg PO DAILY 05/26/22 07/29/23 aspirin 81 mg tablet,delayed 81 mg PO DAILY 05/26/22 07/29/23 release (Adult Low Dose Aspirin) atorvastatin 80 mg tablet 80 mg PO DAILY 05/26/22 07/29/23 cetirizine 10 mg tablet 10 mg PO DAILY PRN 05/26/22 07/29/23 cholecalciferol (vitamin D3) 50 50 mcg PO DAILY 05/26/22 07/29/23 mcg (2,000 unit) capsule hydrochlorothiazide 25 mg tablet 25 mg PO DAILY 05/26/22 07/29/23 levothyroxine 125 mcg capsule 125 mcg PO DAILY 05/26/22 05/26/22 losartan 100 mg tablet (Cozaar) 100 mg PO DAILY 05/26/22 07/29/23 metformin 1,000 mg tablet 1,000 mg PO BID 05/26/22 05/26/22 metoprolol succinate 50 mg capsule 50 mg PO DAILY 05/26/22 05/26/22 sprinkle, ext. release 24 hr (Kapspargo Sprinkle) nortriptyline 50 mg capsule 50 mg PO DAILY 05/26/22 07/29/23 sumatriptan succinate 50 mg tablet 50 mg PO Q2H PRN 05/26/22 07/29/23 (Imitrex) tacrolimus 0.1 % topical ointment 1 applic topical DAILY 05/26/22 05/26/22 vitamin B complex 1 cap PO DAILY 05/26/22 05/26/22 etanercept 50 mg/mL (1 mL) 50 mg subcut 07/29/23 subcutaneous syringe (Enbrel) levothyroxine 125 mcg tablet 125 mcg PO QAM 07/29/23 07/29/23 liraglutide 0.6 mg/0.1 mL (18 mg/3 mg subcut 07/29/23 mL) subcutaneous pen injector (Gera-ITza 3-Alcon) metoprolol succinate 50 mg 50 mg PO DAILY 07/29/23 07/29/23 tablet,extended release 24 hr omeprazole 20 mg capsule,delayed 20 mg PO BID 07/29/23 07/29/23 release pen needle, diabetic 32 gauge x 07/29/23 07/29/23 (TechLITE Pen Needle) tamsulosin 0.4 mg capsule 0.4 mg PO DAILY 07/29/23 07/29/23 vitamin B complex-folic acid 0.4 1 tab PO DAILY 07/29/23 07/29/23 mg tablet Allergies Allergy/AdvReac Type Severity Reaction Status Date / Time Iodinated Contrast Media Allergy Mild Hives Verified 07/29/23 17:45 Review of Systems Status of ROS: Reports: 6 or more systems reviewed and unremarkable except as noted in History and below [facility] Social History Smoking Status: Never smoker Do you use any of these nicotine containing products: None Second hand tobacco smoke exposure: No How often do you have a drink containing alcohol: never AUDIT-C Alcohol total score: 0 Non-prescribed substance use: denies use Exam Narrative: Exam Narrative: Vital signs reviewed. She is not significantly hypertensive. Visual acuity, 20/30 on the left, 20/70 on the right. In general, alert, nontoxic woman, looks comfortable. Head: Normocephalic, atraumatic. Eyes: No significant conjunctival injection on the right. Extraocular movements are full, pupils are equal and reactive bilaterally. ENT: No facial trauma, nares clear. Skin: Warm and dry, no erythema, rash or edema. Const: Vital Signs, click to edit/add: Vital Signs - 24 hr 07/29/23 17:27 Temperature 96.9 F L Pulse Rate [Pulse Oximeter] 76 Respiratory Rate 16 Blood Pressure [Ri ght Upper Arm] 118/77 Pulse Oximetry 98 Oxygen Delivery Me thod Room Air Documenting provider has reviewed patient's vital signs: yes Course Course ED Course: I did do a fluorescein exam, I do not see any defect on the cornea, no significant abnormalities on slit-lamp exam. I did talk with the on-call gi technician at [facility] as think this patient should be further evaluated in eye clinic. She will see her tomorrow morning at 8:15 a.m.. Diagnostic considerations include retinal vein occlusion, vitreous hemorrhage, would doubt retinal artery occlusion given pain though she certainly has multiple risk factors for vascular disease. No evidence of acute angle closure glaucoma. Tylenol if needed for pain, follow-up tomorrow as scheduled. Vital Signs Vital signs: Initial Vital Signs Temperature 96.9 F L 07/29/23 17:27 Temperature Source Temporal Artery Scan 07/29/23 17:27 Pulse Rate 76 07/29/23 17:27 Respiratory Rate 16 07/29/23 17:27 Blood Pressure 118/77 07/29/23 17:27 Blood Pressure Mean 90 07/29/23 17:27 Blood Pressure Position Sitting 07/29/23 17:27 Pulse Oximetry 98 07/29/23 17:27 Oxygen Delivery Method Room Air 07/29/23 17:27 Vital Signs Temperature 96.9 F L 07/29/23 17:27 Pulse Rate 76 07/29/23 17:27 Respiratory Rate 16 07/29/23 17:27 Blood Pressure 118/77 07/29/23 17:27 Pulse Oximetry 98 07/29/23 17:27 Oxygen Delivery Method Room Air 07/29/23 17:27 Temperature 96.9 F L 07/29/23 17:27 Pulse Rate 76 07/29/23 17:27 Respiratory Rate 16 07/29/23 17:27 Blood Pressure 118/77 07/29/23 17:27 Pulse Oximetry 98 07/29/23 17:27 Oxygen Delivery Method Room Air 07/29/23 17:27 Discharge Plan Discharge Clinical Impression: Decreased visual acuity, Eye pain Patient Disposition: Home, Self-Care Condition: Stable Instructions: Eye Pain (ED) Additional Instructions: I have made you an appointment to be seen by an resource management specialist at [facility] in [place] so that they can do a more thorough evaluation of your eye. Cause for your symptoms at this time is not clear. Ok to use Tylenol, or Ibuprofen if you tolerate it, as needed for pain. Prescriptions: No Action atorvastatin 80 mg tablet 80 mg PO DAILY Hold Instructions: hydrochlorothiazide 25 mg tablet 25 mg PO DAILY Hold Instructions: nortriptyline 50 mg capsule 50 mg PO DAILY Hold Instructions: Kapspargo Sprinkle 50 mg capsule,sprinkle,ER 24hr 50 mg PO DAILY Hold Instructions: amlodipine 5 mg tablet 5 mg PO DAILY Hold Instructions: losartan [Cozaar] 100 mg tablet 100 mg PO DAILY Hold Instructions: aspirin [Adult Low Dose Aspirin] 81 mg tablet,delayed release (DR/EC) 81 mg PO DAILY Hold Instructions: vitamin B complex Capsule 1 cap PO DAILY Hold Instructions: tacrolimus 0.1 % ointment 1 applic topical DAILY Hold Instructions: cholecalciferol (vitamin D3) 50 mcg (2,000 unit) capsule 50 mcg PO DAILY Hold Instructions: cetirizine 10 mg tablet 10 mg PO DAILY PRN Hold Instructions: metformin 1,000 mg tablet 1,000 mg PO BID Hold Instructions: sumatriptan succinate [Imitrex] 50 mg tablet 50 mg PO Q2H PRN Hold Instructions: Rx Instructions: do not exceed 4 doses per 24 hrs levothyroxine 125 mcg capsule 125 mcg PO DAILY Hold Instructions: Enbrel 50 mg/mL (1 mL) syringe 50 mg subcut Victoza 3-Alcon 0.6 mg/0.1 mL (18 mg/3 mL) pen injector subcut metoprolol succinate 50 mg tablet extended release 24 hr 50 mg PO DAILY tamsulosin 0.4 mg capsule 0.4 mg PO DAILY levothyroxine 125 mcg tablet 125 mcg PO QAM omeprazole 20 mg capsule,delayed release(DR/EC) 20 mg PO BID vitamin B complex-folic acid 0.4 mg tablet 1 tab PO DAILY (DME) pen needle, diabetic [TechLITE Pen Needle] 32 gauge x 5/32 needle MISCELLANEOUS DIRECTED Follow Up/Referrals: Provider,Not a Local [Primary Care Provider] - Stand Alone Forms: [facility] Info Instructions
== END 2023-07-29 18:40 | disposition home or self-care (01) ==
PROVIDERS: Emergency Provider Emergency Medicine
DX: H54.7 Unspecified visual loss (principal)
CPT/HCPCS: 99283; 99284

== ENCOUNTER 2024-01-13 17:52 | Emergency (ER) | payer OTHER, SELFPAY ==
[2024-01-13 17:58] VITALS: BP 156/90; PULSE 92; RESP 18; TEMP 36.6; O2SAT 93; BMI 36.3
--- NOTE | 2024-01-13 18:24 | ED.GENADULT ---
HPI - General Adult General Date Seen: 01/13/24 Chief complaint: Extremity Pain/Injury, Upper Stated complaint: Lac L finger Time Seen by Provider: 01/13/24 17:56 Source: patient, RN notes reviewed and form presser Mode of arrival: ambulatory Limitations: no limitations History of Present Illness HPI narrative: This 58-year-old female is coming in with concerns of bleeding from her left 4th finger. She goes to [facility]. She noted about a month ago that she started to have a red lesion on her finger. She popped it with a needle, did bleed for about 5 hours. It is not really painful. She wonders if she needs antibiotics because she put an insulin needle in this. She did go to her clinic, they told her that they could not do anything about it, are referring her to Dermatology. She states she has a dermatology appointment February 08 I believe. No fevers. She does have underlying diabetes. Related Data Home Medications Medication Instructions Recorded Confirmed amlodipine 5 mg tablet 5 mg PO DAILY 05/26/22 01/13/24 aspirin 81 mg tablet,delayed 81 mg PO DAILY 05/26/22 01/13/24 release (Adult Low Dose Aspirin) atorvastatin 80 mg tablet 80 mg PO DAILY 05/26/22 01/13/24 cetirizine 10 mg tablet 10 mg PO DAILY PRN 05/26/22 01/13/24 cholecalciferol (vitamin D3) 50 50 mcg PO DAILY 05/26/22 01/13/24 mcg (2,000 unit) capsule hydrochlorothiazide 25 mg tablet 25 mg PO DAILY 05/26/22 01/13/24 levothyroxine 125 mcg capsule 125 mcg PO DAILY 05/26/22 01/13/24 losartan 100 mg tablet (Cozaar) 100 mg PO DAILY 05/26/22 01/13/24 metformin 1,000 mg tablet 1,000 mg PO BID 05/26/22 01/13/24 metoprolol succinate 50 mg capsule 50 mg PO DAILY 05/26/22 01/13/24 sprinkle, ext. release 24 hr (Kapspargo Sprinkle) nortriptyline 50 mg capsule 50 mg PO DAILY 05/26/22 01/13/24 sumatriptan succinate 50 mg tablet 50 mg PO Q2H PRN 05/26/22 01/13/24 (Imitrex) vitamin B complex 1 cap PO DAILY 05/26/22 01/13/24 etanercept 50 mg/mL (1 mL) 50 mg subcut 07/29/23 subcutaneous syringe (Enbrel) levothyroxine 125 mcg tablet 125 mcg PO QAM 07/29/23 01/13/24 liraglutide 0.6 mg/0.1 mL (18 mg/3 mg subcut 07/29/23 mL) subcutaneous pen injector (Victoza 3-Alcon) metoprolol succinate 50 mg 50 mg PO DAILY 07/29/23 01/13/24 tablet,extended release 24 hr omeprazole 20 mg capsule,delayed 20 mg PO BID 07/29/23 01/13/24 release pen needle, diabetic 32 gauge x 07/29/23 01/13/24 (TechLITE Pen Needle) vitamin B complex-folic acid 0.4 1 tab PO DAILY 07/29/23 01/13/24 mg tablet etanercept 50 mg/mL (1 mL) 50 mg subcut 01/13/24 subcutaneous pen injector (Enbrel SureClick) valacyclovir 1 gram tablet 1,000 mg PO DAILY acid reflux 01/13/24 01/13/24 (Valtrex) Allergies Allergy/AdvReac Type Severity Reaction Status Date / Time Iodinated Contrast Media Allergy Mild Hives Verified 01/13/24 18:13 Review of Systems Narrative: As per HPI. [facility] Social History Smoking Status: Never smoker Do you use any of these nicotine containing products: None Second hand tobacco smoke exposure: No How often do you have a drink containing alcohol: never AUDIT-C Alcohol total score: 0 Non-prescribed substance use: denies use Exam Const: Vital Signs, click to edit/add: Vital Signs - 24 hr 01/13/24 17:58 Temperature 97.8 F Pulse Rate [Pulse Oximeter] 92 Respiratory Rate 18 Blood Pressure [Ri ght Upper Arm] 156/90 H Pulse Oximetry 93 Oxygen Delivery Me thod Room Air Patient is a very pleasant 58-year-old female that is ambulatory into the ED of her own accord. On the proximal portion of the middle phalanx on her left hand, 4th finger, there is a central erythematous, purplish lesion that looks to be consistent with a pyogenic granuloma. She has full mobility of this finger. This seems to be superficial, no active bleeding at this time. There is no surrounding erythema, no evidence of any secondary infection. Documenting provider has reviewed patient's vital signs: yes Course Course ED Course: Reviewed with patient that this most definitely appears to be a pyogenic granuloma, this will need to be managed by Dermatology. This is not something we would take off here in the ER. We did discuss that I certainly understand that these lesions can bleed and will bleed. She is simply going to have to use bandages and pressure when there was bleeding. I have no way to expedite a dermatology appointment for her. We discussed not picking at it, not poking it with needles. There is no evidence of infection at this time. Antibiotics are not required as there is no infection. Vital Signs Vital signs: Initial Vital Signs Temperature 97.8 F 01/13/24 17:58 Temperature Source Temporal Artery Scan 01/13/24 17:58 Pulse Rate 92 01/13/24 17:58 Respiratory Rate 18 01/13/24 17:58 Blood Pressure 156/90 H 01/13/24 17:58 Blood Pressure Mean 112 H 01/13/24 17:58 Blood Pressure Position Sitting 01/13/24 17:58 Pulse Oximetry 93 01/13/24 17:58 Oxygen Delivery Method Room Air 01/13/24 17:58 Vital Signs Temperature 97.8 F 01/13/24 17:58 Pulse Rate 92 01/13/24 17:58 Respiratory Rate 18 01/13/24 17:58 Blood Pressure 156/90 H 01/13/24 17:58 Pulse Oximetry 93 01/13/24 17:58 Oxygen Delivery Method Room Air 01/13/24 17:58 Temperature 97.8 F 01/13/24 17:58 Pulse Rate 92 01/13/24 17:58 Respiratory Rate 18 01/13/24 17:58 Blood Pressure 156/90 H 01/13/24 17:58 Pulse Oximetry 93 01/13/24 17:58 Oxygen Delivery Method Room Air 01/13/24 17:58 Discharge Plan Discharge Clinical Impression: Lesion of finger Condition: Stable Additional Instructions: This lesion on your finger appears to be consistent with a pyogenic granuloma. This is a benign lesion but certainly does bleed as it is vascular. You need to apply pressure if it does start bleeding, use bandages to try to protect this so you do not bump it during the day. You are going to have to go back to Dermatology to have this taken care of. We do not do this sort of removal in the ER. Prescriptions: No Action atorvastatin 80 mg tablet 80 mg PO DAILY Hold Instructions: hydrochlorothiazide 25 mg tablet 25 mg PO DAILY Hold Instructions: nortriptyline 50 mg capsule 50 mg PO DAILY Hold Instructions: Kapspargo Sprinkle 50 mg capsule,sprinkle,ER 24hr 50 mg PO DAILY Hold Instructions: amlodipine 5 mg tablet 5 mg PO DAILY Hold Instructions: losartan [Cozaar] 100 mg tablet 100 mg PO DAILY Hold Instructions: aspirin [Adult Low Dose Aspirin] 81 mg tablet,delayed release (DR/EC) 81 mg PO DAILY Hold Instructions: vitamin B complex Capsule 1 cap PO DAILY Hold Instructions: cholecalciferol (vitamin D3) 50 mcg (2,000 unit) capsule 50 mcg PO DAILY Hold Instructions: cetirizine 10 mg tablet 10 mg PO DAILY PRN Hold Instructions: metformin 1,000 mg tablet 1,000 mg PO BID Hold Instructions: sumatriptan succinate [Imitrex] 50 mg tablet 50 mg PO Q2H PRN Hold Instructions: Rx Instructions: do not exceed 4 doses per 24 hrs levothyroxine 125 mcg capsule 125 mcg PO DAILY Hold Instructions: Enbrel 50 mg/mL (1 mL) syringe 50 mg subcut Victoza 3-Alcon 0.6 mg/0.1 mL (18 mg/3 mL) pen injector subcut metoprolol succinate 50 mg tablet extended release 24 hr 50 mg PO DAILY levothyroxine 125 mcg tablet 125 mcg PO QAM omeprazole 20 mg capsule,delayed release(DR/EC) 20 mg PO BID vitamin B complex-folic acid 0.4 mg tablet 1 tab PO DAILY (DME) pen needle, diabetic [TechLITE Pen Needle] 32 gauge x 5/32 needle MISCELLANEOUS DIRECTED valacyclovir [Valtrex] 1 gram tablet 1,000 mg PO DAILY Enbrel SureClick 50 mg/mL (1 mL) pen injector 50 mg subcut Follow Up/Referrals: Provider,Not a Local [Primary Care Provider] - Stand Alone Forms: [facility] Info Instructions
== END 2024-01-13 18:40 | disposition home or self-care (01) ==
LOC: ED 18:36
PROVIDERS: Emergency Provider Family Medicine
DX: L98.0 Pyogenic granuloma (principal)
CPT/HCPCS: 99282; 99283

== ENCOUNTER 2024-03-25 22:31 | Emergency (ER) | payer OTHER, SELFPAY ==
[2024-03-25 22:46] VITALS: BP 149/95; PULSE 93; RESP 16; TEMP 36.2; O2SAT 97; BMI 36.7
--- NOTE | 2024-03-25 23:01 | ED.GENADULT ---
HPI - General Adult General Chief complaint: Ear/Nose/Throat Problem Stated complaint: left ear pain Time Seen by Provider: 03/25/24 22:46 History of Present Illness HPI narrative: c/o Nausea, chills, and palpations and but the pt states that I think its just anxiety. since Saturday, started to vomit today and has left ear pain. denies any sick contacts, fevers, or diarrhea. pt states that they started a new medication on March 10, chlorthalidone, pt thinks this is the cause of the new symptoms. 58-year-old woman presenting to the emergency department Symptoms of palpitations and chills and then nausea and intense fatigue have been occurring for some time now. She does admit to having been prescribed medication about a year and a half ago for what sounds like depression possibly anxiety. She never ended up taking it. Over the last couple of monthsReally having trouble with sleeping. She has been very exhausted. She is concerned that it has been because of dealing with the wound on her left 3rd or 4th finger-looks to have been a pyogenic granuloma-that but excessively. Worried that she might have low blood or iron. Denies any abdominal pain. Does have a history of an ulcer. Does not take ibuprofen for that reason but it has been more than a year since the recommendation has been made Denies dental problems. They note that she does have a diagnosis of psoriasis. Sounds like it has affected her ear before but not convinced that this is the case this time. Later conversation reveals a fairly stressful experiences and possible PTSD history Related Data Home Medications ?Medication ?Instructions ?Recorded ?Confirmed amlodipine 5 mg tablet 5 mg PO DAILY 05/26/22 03/25/24 aspirin 81 mg tablet,delayed 81 mg PO DAILY 05/26/22 03/25/24 release (Adult Low Dose Aspirin) atorvastatin 80 mg tablet 80 mg PO DAILY 05/26/22 01/13/24 cetirizine 10 mg tablet 10 mg PO DAILY PRN 05/26/22 03/25/24 cholecalciferol (vitamin D3) 50 50 mcg PO DAILY 05/26/22 03/25/24 mcg (2,000 unit) capsule hydrochlorothiazide 25 mg tablet 25 mg PO DAILY 05/26/22 01/13/24 levothyroxine 125 mcg capsule 125 mcg PO DAILY 05/26/22 01/13/24 losartan 100 mg tablet (Cozaar) 100 mg PO DAILY 05/26/22 03/25/24 metformin 1,000 mg tablet 1,000 mg PO BID 05/26/22 03/25/24 metoprolol succinate 50 mg capsule 50 mg PO DAILY 05/26/22 01/13/24 sprinkle, ext. release 24 hr (Kapspargo Sprinkle) nortriptyline 50 mg capsule 50 mg PO DAILY 05/26/22 01/13/24 sumatriptan succinate 50 mg tablet 50 mg PO Q2H PRN 05/26/22 01/13/24 (Imitrex) vitamin B complex 1 cap PO DAILY 05/26/22 03/25/24 etanercept 50 mg/mL (1 mL) 50 mg subcut 07/29/23 subcutaneous syringe (Enbrel) levothyroxine 125 mcg tablet 125 mcg PO QAM 07/29/23 01/13/24 liraglutide 0.6 mg/0.1 mL (18 mg/3 mg subcut 07/29/23 mL) subcutaneous pen injector ([employer] 3-Alcon) metoprolol succinate 50 mg 50 mg PO DAILY 07/29/23 03/25/24 tablet,extended release 24 hr omeprazole 20 mg capsule,delayed 20 mg PO BID 07/29/23 03/25/24 release pen needle, diabetic 32 gauge x 07/29/23 01/13/24 5/32 (TechLITE Pen Needle) vitamin B complex-folic acid 0.4 1 tab PO DAILY 07/29/23 01/13/24 mg tablet etanercept 50 mg/mL (1 mL) 50 mg subcut 01/13/24 subcutaneous pen injector (Enbrel SureClick) valacyclovir 1 gram tablet 1,000 mg PO DAILY acid reflux 01/13/24 01/13/24 (Valtrex) chlorthalidone 50 mg tablet 50 mg PO DAILY 03/25/24 03/25/24 Previous Rx's ?Medication ?Instructions ?Recorded fluocinolone acetonide oil 0.01 % 5 drp Otic (ear-left) BID 6 days 03/26/24 ear drops #20 mL lorazepam 1 mg tablet 0.5 - 1 mg (0.5 - 1 x 1 mg) PO BID 03/26/24 PRN Excessive anxiety #12 tabs trazodone 50 mg tablet 50 - 100 mg (1 - 2 x 50 mg) PO QHS 03/26/24 PRN insomnia #30 tabs Allergies Allergy/AdvReac Type Severity Reaction Status Date / Time Iodinated Contrast Media Allergy Mild Hives Verified 03/25/24 22:46 Review of Systems Status of ROS: Reports: 6 or more systems reviewed and unremarkable except as noted in History and below PFSH PFS Social History Smoking Status: Never smoker Do you use any of these nicotine containing products: None Second hand tobacco smoke exposure: No How often do you have a drink containing alcohol: never AUDIT-C Alcohol total score: 0 Non-prescribed substance use: denies use Exam Narrative: Exam Narrative: Reddened left ear canal but without tragus tenderness. She does endorse using cotton swabs. No actual TMJ tenderness. She indicates some soreness though near the master muscle Abdomen soft nontender. Does appear anxious. Heart is in elevated rate and regular rhythm without murmur rub or gallop. Well-perfused peripherally. Granulomatous noninflamed sub cm lesion left 4th finger Mucous membranes WNL. Oropharynx with good dentition. Const: Vital Signs, click to edit/add: Vital Signs - 24 hr 03/25/24 22:46 Temperature 97.1 F L Pulse Rate [Pulse Oximeter] 93 Respiratory Rate 16 Blood Pressure [Ri ght Upper Arm] 149/95 H Pulse Oximetry 97 Oxygen Delivery Me thod Room Air Documenting provider has reviewed patient's vital signs: yes Course Vital Signs Vital signs: Initial Vital Signs Temperature 97.1 F L 03/25/24 22:46 Temperature Source Temporal Artery Scan 03/25/24 22:46 Pulse Rate 93 03/25/24 22:46 Respiratory Rate 16 03/25/24 22:46 Blood Pressure 149/95 H 03/25/24 22:46 Blood Pressure Mean 113 H 03/25/24 22:46 Blood Pressure Position Sitting 03/25/24 22:46 Pulse Oximetry 97 03/25/24 22:46 Oxygen Delivery Method Room Air 03/25/24 22:46 Vital Signs Temperature 97.1 F L 03/25/24 22:46 Pulse Rate 93 03/25/24 22:46 Respiratory Rate 16 03/25/24 22:46 Blood Pressure 149/95 H 03/25/24 22:46 Pulse Oximetry 97 03/25/24 22:46 Oxygen Delivery Method Room Air 03/25/24 22:46 Temperature 97.1 F L 03/25/24 22:46 Pulse Rate 93 03/25/24 22:46 Respiratory Rate 16 03/25/24 22:46 Blood Pressure 149/95 H 03/25/24 22:46 Pulse Oximetry 97 03/25/24 22:46 Oxygen Delivery Method Room Air 03/25/24 22:46 Medications Administered Medications: Discontinued Medications Generic Name Dose Route Start Last Admin Trade Name Moe PRN Reason Stop Dose Admin Sodium Chloride 1,000 mls @ 1,000 mls/hr 03/25/24 23:14 03/26/24 00:10 0.9 % Sodium Chloride 1000 Ml IV 03/26/24 00:13 Infused .Q1H ONE Infusion Ibuprofen 800 mg 03/25/24 23:47 03/25/24 23:54 Ibuprofen 400 Mg Tablet PO 03/25/24 23:48 800 mg ONCE ONE Administration Lorazepam 1 mg 03/25/24 23:16 03/25/24 23:37 Lorazepam 1 Mg Tablet PO 03/25/24 23:17 1 mg ONCE ONE Administration Medical Decision Making MDM Narrative Medical decision making narrative: Seems to be describing some episodes of tachyarrhythmia or I think more likely given the constellation of symptoms attacks of anxiety. Does have specific concerns and can certainly evaluate ?iron level ?. Has been initiate on chlorthalidone which could be contributing to symptoms as noted above. Would also check chemistries related to initiation medication. After discussion of potential treatment to apparent stressed tonight, did feel would benefit from dosing of lorazepam. Also given ibuprofen and saline. With reassessment was markedly improved. Labs reassuring though transaminases slightly elevated. This might be related fatty liver. Have been mildly elevated prior. See patient discharge plan for further discussion Medical Records Medical records reviewed: Yes I reviewed the patient's medical records Lab Data Lab results reviewed: Yes I reviewed the patient's lab results Labs: Lab Results 03/25/24 03/25/24 Range/Units 23:00 23:20 Hgb 14.9 (12.0-16.0) gm/dL Sodium 138 (135-149) mmol/L Potassium 3.2 L (3.6-5.1) mmol/L Chloride 97 (96-114) mmol/L Carbon Dioxide 28 (20-32) mmol/L Anion Gap 13 (7-15) mEq/L BUN 22 (7-30) mg/dL Creatinine 0.9 (0.5-1.5) mg/dL Estimated Creat Clear 52.57 Estimated GFR 73 ml/min Glucose 134 H (60-115) mg/dL Calcium 10.8 H (8.4-10.6) mg/dL Magnesium 1.9 (1.5-2.6) mg/dL Total Bilirubin 1.1 (0.1-1.5) mg/dL Direct Bilirubin 0.2 (0.0-0.5) mg/dL AST 50 H (12-35) U/L ALT 80 H (4-35) U/L Alkaline Phosphatase 106 (40-150) U/L NT-Pro-B Natriuret Pep < 20 pg/mL Total Protein 8.2 (6.0-8.3) g/dL Albumin 5.1 H (3.3-5.0) g/dL Urine Color Yellow (Yellow) Urine Appearance Clear (Clear) Urine pH 5.5 (5.0-8.5) Ur Specific [place] 1.015 (1.000-1.030) Urine Protein Negative (Negative) Urine Glucose (UA) Negative (Negative) Urine Ketones Negative (Negative) Urine Blood Negative (Negative) Urine Nitrite Negative (Negative) Urine Bilirubin Negative (Negative) Urine Urobilinogen 0.2 (0.2-1.0) Ur Leukocyte Esterase Negative (Negative) Urine RBC 0-2 (0-2) Urine WBC 0-2 (0-5) Ur Squamous Epith Cells Moderate A (None-Few) Urine Bacteria Few A (None) Ethyl Alcohol < 0.01 L (0.01-0.03) % Discharge Plan Discharge Clinical Impression: Other social stressor, Anxiety, Insomnia, Otitis externa Patient Disposition: Home w/ Parent or Adult Condition: Improved Additional Instructions: I am sorry you are struggling with this. Please call to schedule follow-up with your primary care provider or clinic. There are other options for treatment for panic attacks which it appears you are experiencing. It might also be a good idea to do a medication review with your healthcare provider. Do try to get in a little heart pumping exercise most days of the week as it can do your mind/emotions good. Lamento que est?s luchando con esto. Llame para programar un seguimiento con reina proveedor de atenci?n primaria o cl?faheem. Existen otras opciones de tratamiento para los ataques de p?loki que parece que est? experimentando. Tambi?n podr?a ser bharat buena idea realizar bharat revisi?n de los medicamentos con reina proveedor de atenci?n m?dica. Intente hacer un poco de ejercicio para bombear el coraz?n la mayor?a de los d?as de la semana, ya que puede beneficiar reina mente y debbie emociones. Prescriptions: New lorazepam 1 mg tablet 0.5 - 1 mg PO BID PRN (Reason: Excessive anxiety) Qty: 12 0RF trazodone 50 mg tablet 50 - 100 mg PO QHS PRN (Reason: insomnia) Qty: 30 0RF fluocinolone acetonide oil 0.01 % drops 5 drp Otic (ear-left) BID 6 Days Qty: 20 0RF No Action atorvastatin 80 mg tablet 80 mg PO DAILY Hold Instructions: hydrochlorothiazide 25 mg tablet 25 mg PO DAILY Hold Instructions: nortriptyline 50 mg capsule 50 mg PO DAILY Hold Instructions: Kapspargo Sprinkle 50 mg capsule,sprinkle,ER 24hr 50 mg PO DAILY Hold Instructions: amlodipine 5 mg tablet 5 mg PO DAILY Hold Instructions: losartan [Cozaar] 100 mg tablet 100 mg PO DAILY Hold Instructions: aspirin [Adult Low Dose Aspirin] 81 mg tablet,delayed release (DR/EC) 81 mg PO DAILY Hold Instructions: vitamin B complex Capsule 1 cap PO DAILY Hold Instructions: cholecalciferol (vitamin D3) 50 mcg (2,000 unit) capsule 50 mcg PO DAILY Hold Instructions: cetirizine 10 mg tablet 10 mg PO DAILY PRN Hold Instructions: metformin 1,000 mg tablet 1,000 mg PO BID Hold Instructions: sumatriptan succinate [Imitrex] 50 mg tablet 50 mg PO Q2H PRN Hold Instructions: Rx Instructions: do not exceed 4 doses per 24 hrs levothyroxine 125 mcg capsule 125 mcg PO DAILY Hold Instructions: Enbrel 50 mg/mL (1 mL) syringe 50 mg subcut [employer] 3-Alcon 0.6 mg/0.1 mL (18 mg/3 mL) pen injector subcut metoprolol succinate 50 mg tablet extended release 24 hr 50 mg PO DAILY levothyroxine 125 mcg tablet 125 mcg PO QAM omeprazole 20 mg capsule,delayed release(DR/EC) 20 mg PO BID vitamin B complex-folic acid 0.4 mg tablet 1 tab PO DAILY (DME) pen needle, diabetic [TechLITE Pen Needle] 32 gauge x 5/32 needle MISCELLANEOUS DIRECTED valacyclovir [Valtrex] 1 gram tablet 1,000 mg PO DAILY Enbrel SureClick 50 mg/mL (1 mL) pen injector 50 mg subcut chlorthalidone 50 mg tablet 50 mg PO DAILY Follow Up/Referrals: Provider,Not a Local [Primary Care Provider] - Stand Alone Forms: [facility] Inst[facility]
--- OUTSIDE RECORDS SUMMARY | 2024-03-25 23:23 | XMS_ITS | Clinical Summary ---
Author Organization [facility] Address [address] [place] [address] Care Team Providers Care Quality Lab Technician Name Role Phone Jaciel Campos MD Primary Care Provider [phone] Source Comments You are receiving this document as you are listed as the primary care provider,follow-up provider, or the patient has been referred to you for consultation.This is in compliance with the Medicare and[facility] Incentive Program,which states Providers who transition their patient to another setting of careor provider of care or refers their patient to another provider of care shouldprovide summary care record for each transition of care or referral. [facility] Allerg[facility] Active Allergy Reactions Criticality Noted Date Comments Alcohol Headache 06/13/2012 burning Diatrizoate Hives High 02/10/2014 Pineapple Headache 06/13/2012 burning Medications Medication Sig Dispensed Refills Start Date End Date Status HYDROCHLOROTHIAZIDE 25MG ORAL TABS Take one tablet by mouth every morning. Active enalapril (AKA VASOTEC) 20 MG tablet 1 TABLET DAILY Active Cholecalciferol (VITAMIN D) 50 MCG (1999) tablet Take 2 Tablets by mouth daily. 07/21/2021 Active clobetasol (TEMOVATE) 0.05 % ointment Apply 1 a small amount to affected area twice a day use for 2 weeks, then 1 week off and repeat as needed 08/31/2021 Active losartan (COZAAR) 100 MG tablet Take 100 mg by mouth daily. 10/06/2021 Active tacrolimus (PROTOPIC) 0.1 % ointment SMARTSI Sparingly Topical Twice Daily 08/31/2021 Active metFORMIN (GLUCOPHAGE) 1000 MG tablet Take 1,000 mg by mouth two times a day with meals. Active Active Problems Problem Noted Date Diagnosed Date CVA (cerebral vascular accident) 09/30/2015 Ovarian cyst 12/27/2011 Menorrhagia 12/27/2011 HTN (hypertension) 12/27/2011 Fibroid uterus 12/27/2011 Hernia, abdominal 11/19/2008 Resolved Problems Problem Noted Date Diagnosed Date Resolved Date Cholelithiasis 11/19/2008 12/27/2011 Family History Medical History Relation Name Comments Hypertension Mother Hypertension Sister Cancer, Breast Negative Family History Cancer, Ovary Negative Family History Relation Name Status Comments Mother Sister Social History Tobacco Use Types Packs/Day Years Used Date Smoking Tobacco: Never Smokeless Tobacco: Never Alcohol Use Standard Drinks/Week Comments No 0 (1 standard drink = 0.6 oz pur e alcohol) Sex and Gender Information Value Date Recorded Sex Assigned at Not on file Gender Identity Not on file Sexual Orientation Not on file Last Filed Vital Signs Vital Sign Reading Time Taken Comments Blood Pressure 136/90 10/25/2021 12:25 PM DEMOLITION EXPERT Pulse 79 10/25/2021 12:25 PM DEMOLITION EXPERT Temperature 37.2 ??C (99 ??F) 01/17/2012 4:06 PM CDT Respiratory Rate 16 12/27/2011 1:54 PM CDT Oxygen Saturation 100% 11/27/2008 10:53 PM CDT Inhaled Oxygen Concentration - - Weight 91.2 kg (201 lb) 10/25/2021 12:25 PM DEMOLITION EXPERT Height 158.1 cm (5' 2.25) 01/17/2012 4:06 PM CD T Body Mass Index 36.47 01/17/2012 4:06 PM CDT Plan of Treatment Health Maintenance Due Date Last Done Comments Cervical Cancer Screening Due 1965 Colon Cancer Screening Plan Due 1965 Hep C Screening (Preventive Services) 1963 HIV Screening (Preventive Services) 1979 Adult Preventive Visit 1981 Cholesterol 2008 Zoster/Shingles (1 of 2) 2013 Mammogram 08/24/2022 08/24/2021, 06/0 02/2019, 01/28/2018, Additional history exists COVID-19 Vaccine ( season) 2023 08/31/2021, 12/15/2020, 11/17/2020 Influenza (#1) 2024 07/14/2021, 10/0 09/2019, 07/10/2019, Additional history exists DTaP/Tdap/Td (4 - Tdap) 08/31/2031 08/31/20, 06/02/2012, 07/07/2011 HepA Aged Out 05/26/2010, 03/09/2010 No lo nger eligible based on patient's age to complete this topic Pneumococcal Aged Out 08/31/2021 No longer eligi ble based on patient's age to complete this topic HepB Aged Out No longer eligi ble based on patient's age to complete this topic Hib Aged Out No longer eligi ble based on patient's age to complete this topic IPV (Polio) Aged Out No longer eligi ble based on patient's age to complete this topic MCV4 Aged Out No longer eligi ble based on patient's age to complete this topic Procedures Procedure Name Priority Date/Time Associated Diagnosis Comments MM MAMMOGRAM SCREENING BILAT W 3D ERIC W CAD Routine 08/24/2021 4:12 PM DEMOLITION EXPERT Encounter for screening mammogram for malignant neoplasm of breast from Last 3 Months or Most Recently Relevant to Health Maintenance Results * (ABNORMAL) MM Mammogram Screening Bilat W 3D Eric W CAD (08/24/2021 4:12 PM DEMOLITION EXPERT) Anatomical Region Laterality Modality Breast Bilateral Mammography Impressions 08/25/2021 1:42 PM DEMOLITION EXPERT : ACR BI-RADS Category 0: Need Additional Imaging Evaluation RECOMMENDATION: Additional Mammographic Images and Possible Ultrasound The results and recommendations of this examination will be communicated to the patient and the imaging center will attempt to schedule any recommended follow up with the patient. As a result of the Cures Act, all medical imaging exams are released immediately to [facility]. ??You may be viewing this report before our scheduling staff and your referring provider. ??We will attempt to contact you by phone within one business day of this report to schedule any recommended follow-up exams. ??If you have questions, please contact your health care provider. Narrative 08/25/2021 1:42 PM DEMOLITION EXPERT MM MAMMOGRAM SCREENING BILAT W 3D ERIC W CAD performed on 08/24/21 Compared to: 02/19/2019 MM Mammogram Screening Bilat W 3D Eric W CAD, 01/28/2018 MM Mammogram Screening Bilat W Eric W CAD, 10/12/2016 [facility] - MAMMO BILAT SCREEN - IMAGES, 09/08/2014 US BREAST LEFT, 09/08/2014 MAMMO DIAGNOSTIC W/ERIC BILAT, 11/01/2010 [facility] RAD SCRN BILATERAL, 11/01/2010 MM Mammogram Screening Bilat W CAD, 10/25/2009 [facility] RAD SCRN BILATERAL, 10/14/2008 [facility] RAD SCRN BILATERAL, and 10/14/2007 MM Mammogram Screening Bilat W CAD ?? FINDINGS: Bilateral screening mammogram was performed with the assistance of Computer-Aided Detection and breast tomosynthesis. The breasts are extremely dense, which lowers the sensitivity of mammography. There is possible architectural distortion in the right breast on the CC view in the retroareolar plane at posterior depth. There are benign appearing calcifications. There are benign appearing circumscribed masses. Jaciel Campos MD RAD EMY from Last 3 Months or Most Recently Relevant to Health Maintenance Care Teams Quality Lab Technician Relationship Specialty Start Date End Date Jaciel Campos MD [address] [place], [place] [address], [place] [id number] PCP - General Family Practice 08/07/21
--- OUTSIDE RECORDS SUMMARY | 2024-03-25 23:24 | XMS_ITS | Clinical Summary ---
Author Organization [facility] Address [place], [place] [address] Care Team Providers Care Debarker Operator Name Role Phone AmanEmerita sousatchen Sandra Unavailable Cooper Pedroza MD Primary Care Provider [phone] Allergies Active Allergy Reactions Criticality Noted Date Comments Alcohol Headache 06/13/2012 burning Diatrizoate Allergen Hives 02/10/2014 Pineapple Headache 06/13/2012 burning Medications Medication Sig Dispensed Refills Start Date End Date Status aspirin (ECOTRIN) 81 mg enteric coated tablet Take 1 tablet by mouth once daily with a meal. 0 08/23/2015 Active mupirocin (BACTROBAN) 2 % creamIndications:Le leatha of external ear canal, right Apply topically to affected area(s) 3 times daily. Rock veces al jaron por 5 peña 15 g 0 05/31/2016 Active atenolol (TENORMIN) 50 mg tabletIndications:H TN (hypertension) Take 1 tablet by mouth once daily. 90 tablet 3 10/11/2016 Active atorvastatin (LIPITOR) 20 mg tabletIndications:H yperlipidemia, unspecified Take 1 tablet by mouth once daily. 90 tablet 3 10/11/2016 Active hydroCHLOROthiazide (HCTZ) 25 mg tabletIndications:h ypertension Take 1 tablet by mouth once daily. Indications: Hypertension 90 tablet 3 10/11/2016 Active loratadine (CLARITIN) 10 mg tabletIndications:F acial burning Take 1 tablet by mouth once daily. 30 tablet 6 10/15/2016 Active diphenhydrAMINE (BENADRYL) 25 mg tabletIndications:A llergic reaction, subsequent encounter Take 2 tablets by mouth every 6 hours if needed for Itching. 30 tablet 11/14/2016 Active hydrocortisone 1 % ointmentIndications :Allergic reaction, subsequent encounter Apply topically to affected area(s) 2 times daily. 1 Tube 11/14/2016 Active albuterol HFA (VENTOLIN HFA) 90 mcg/actuation inhalerIndications: Cough Inhale 1-2 Puffs by mouth every 4 hours if needed. 1 Inhaler 12/21/2016 Active metFORMIN (GLUCOPHAGE) 1,000 mg tablet Take 1 tablet by mouth 2 times daily with meals. 0 06/04/2017 Active sertraline (ZOLOFT) 50 mg tabletIndications:D epression, unspecified depression type Take 1 tablet by mouth once daily. Take 1/2 tablet daily for 8 days, then a full tablet 90 tablet 3 06/04/2017 Active lidocaine HCl (ASPERCREME, LIDOCAINE,) 4 % topical creamIndications:Mu sculoskeletal pain Apply topically to affected area(s) 3 times daily if needed. 1 Bottle 1 06/04/2017 Active amLODIPine (NORVASC) 5 mg tablet Take 1 tablet by mouth once daily. 0 07/08/2017 Active Hospital, Clinic, or Other Facility Administered Medication Ordered Dose Route Frequency Start Date End Date Status NaCl 0.9%Indications:Dehydration, mild 999 mL/hr IV CONTINUOUS 09/13/2015 Active Active Problems Problem Noted Date Diagnosed Date Allergy to IVP dye 10/31/2015 CVA (cerebral vascular accident) 09/30/2015 Herpes 11/11/2013 Menorrhagia 04/29/2012 Dysthymia 04/29/2012 HTN (hypertension) 04/18/2012 Immunizations Name Administration Dates Next Due Influenza, IIV3 (Age >=3 years) 06/02/2012 Influenza, IIV4 06/04/2017,05/31/2016,08/23/2015 Tdap 06/02/2012 Family History Medical History Relation Name Comments Other Son lazy eye Cancer-breast No Family History Relation Name Status Comments Son Social History Tobacco Use Types Packs/Day Years Used Date Smoking Tobacco: Former Cigarettes Q uit: 09/16/2015 Smokeless Tobacco: Never Tobacco Cessation:Counseling Given: Yes Alcohol Use Standard Drinks/Week Comments No 0 (1 standard drink = 0.6 oz pur e alcohol) Sex and Gender Information Value Date Recorded Sex Assigned at Not on file Gender Identity Not on file Sexual Orientation Not on file Obstetrics History Para Term AB IAB SAB Ectopic Multiple Livin g Live Births 3 0 0 0 0 0 0 0 0 2 3 Date Outcome GA Total Labor Labor/2nd/3rd Weight Sex Type Anes PTL Laverne A1 A5 Name Clin Living Living Deceas e d Comments:baby 1 day ol d Last Filed Vital Signs Vital Sign Reading Time Taken Comments Blood Pressure 120/82 10/12/2017 9:58 AM TAXI DRIVER SUPERVISOR Pulse 66 10/12/2017 9:58 AM [employer]I [employer]IVER SUPERVISOR Temperature 37.5 ??C (99.5 ??F) 10/12/2017 9:58 AM CS T Respiratory Rate 16 11/14/2016 3:00 AM [employer]I DRIVER SUPERVISOR Oxygen Saturation 96% 10/12/2017 9:58 AM [employer]I DRIVER SUPERVISOR Inhaled Oxygen Concentration - - Weight 92.8 kg (204 lb 9.6 oz) 10/12/2017 9:58 A M [employer] SUPERVIS[employer] Height 159.5 cm (5' 2.8) 08/24/2017 9:21 AM [employer]IVER SUPERVISOR Body Mass Index 36.48 08/24/2017 9:21 AM TAXI DRIVER SUPERVISOR Plan of Treatment Health Maintenance Due Date Last Done Comments HIV for age 15-65 1978 Zoster (shingles) series for age 50+ (1 of 2) 2013 Mammogram for age 45-75 10/12/2017 10/12/19 17, 09/02/2015, 09/02/2015, Additional history exists Depression screening for age 12+ 06/17/2018 06/17/2017, 12/21/2016, 12/22/2015 BMI (ht and wt on same day) for age 18+ 08/24/2018 08/24/2017, 07/15/2017, 07/08/2017, Additional history exists Pap test for age 21-65 12/28/2018 6, 12/29/2015, 12/23/2012 Lipids for age 45-75 10/11/2021 10/11/2016, 11/03/2015, 09/02/2015, Additional history exists Tetanus booster 06/02/2022 06/02/2012 COVID-19 vaccine series (1 - 2023-24 season) 2023 Colonoscopy through age 75 02/19/2024 02/18/2014 Influenza for age 50-64 05/17/2024 06/04/20 17, 05/31/2016, 08/23/2015, Additional history exists Tdap Completed 06/02/2012 Hepatitis C screening for age 18-79 Completed 09/02/2015 Pneumococcal series for age 6-64 Aged Out No longer eligible based on patient's age to complete this topic Procedures Procedure Name Priority Date/Time Associated Diagnosis Comments XR MAMMO BILAT SCREENING Routine 10/12/2016 4:23 PM TAXI DRIVER SUPERVISOR Visit for screening mammogram LIPID PANEL W REFLEX MEASURED LDL Routine 10/11/2016 4:40 PM [employer]AXI DRIVER SUPERVISOR Screening cholesterol level LIQUOR BRIDGE OPERATOR HELPER THIN PREP PAP SCREEN IMAGED Routine 12/29/2015 3:45 PM CDT Cervical cancer screening ANTI HCV Routine 09/02/2015 4:58 PM [employer]AXI [employer]IVER SUPERVISOR Need for hepatitis C screening test from Last 3 Months or Most Recently Relevant to Health Maintenance Results * XR MAMMO BILAT SCREENING (10/12/2016 4:23 PM TAXI DRIVER SUPERVISOR) Anatomical Region Laterality Modality BREASTS, Breast Left, Breast Right Bilateral Mammography Impressions 10/15/2016 12:46 PM TAXI DRIVER SUPERVISOR ??There is no radiographic evidence for malignancy. ??Recommend annual mammograms. A lay language report of this examination will be provided to the patient. MAMMOGRAM ASSESSMENT: ??ACR 2 Benign Narrative 10/15/2016 12:46 PM TAXI DRIVER SUPERVISOR XR MAMMO BILAT SCREENING [[id number]] CLINICAL HISTORY: ??This is an asymptomatic 50 y.o. patient. INDICATION FOR EXAM: Mammogram Screening. TECHNIQUE: CC & MLO views were obtained. ??This digital study was evaluated with the assistance of Computer-Aided Detection. COMPARISON FILMS: Yes 09/02/[address] [facility] 12/23/[address] [facility] FINDINGS: ??Mammographically, the breast tissue is heterogeneously dense, which could obscure detection of small masses. ??No suspicious masses or microcalcifications. ??Benign appearing calcifications within both breasts. Cooper Diamond MD MAMMO * (ABNORMAL) LIPID PANEL W REFLEX MEASURED LDL (10/11/2016 4:40 PM TAXI DRIVER SUPERVISOR) CHOLESTEROL,TOTAL 197 100 - 199 mg/dL 10/11/2016 5:07 PM TAXI DRIVER SUPERVISOR [facility] TRIGLYCERIDES 181(H) <150 mg/dL 10/11/2016 5:07 PM TAXI DRIVER SUPERVISOR [facility] HDL CHOLESTEROL 53 >40 mg/dL 7 5:07 PM TAXI DRIVER SUPERVISOR [facility] NON-HDL CHOLESTEROL 144 <145 mg/dl 10/11/2016 5:07 PM TAXI DRIVER SUPERVISOR [facility] CHOL/HDL RATIO 3.72 <4.50 10/11/2016 5:07 PM TAXI DRIVER SUPERVISOR [facility] LDL CHOLESTEROL 108 <=130 mg/dL 10/11/2016 5:07 PM TAXI DRIVER SUPERVISOR [facility] PATIENT STATUS NOT GIVEN 10/11/2016 5:07 PM TAXI DRIVER SUPERVISOR [facility] Blood BLOOD SPECIMEN / Unknown Venipuncture / Unknown 10/11/2016 4:40 PM TAXI DRIVER SUPERVISOR 10/11/2016 4:40 PM TAXI DRIVER SUPERVISOR Cooper iDamond MD CHEMISTRY [facility] [address] [place] [address], [place] [phone] * LIQUOR BRIDGE OPERATOR HELPER THIN PREP PAP SCREEN IMAGED (12/29/2015 3:45 PM CDT) LIQUOR BRIDGE OPERATOR HELPER CYTOLOGY See Anatomic Pathology case 12/30/2015 5:01 PM CDT [facility] Specimen (specimen) (Cervical) Non-Blood / Unknown 12/29/2015 3:45 PM CDT 12/29/2015 4:21 PM CDT Cooper Diamond MD PATHOLOGY/CYTOLOGY [facility] [address] [place] [address], [place] * ANTI HCV [[id number]] (09/02/2015 4:58 PM TAXI DRIVER SUPERVISOR) HEPATITIS C ANTIBODY Non-Reacti ve Non-Reacti ve 09/03/2015 4:28 PM TAXI DRIVER SUPERVISOR [facility] Blood specimen (specimen) BLOOD SPECIMEN / Unknown Venipuncture / Unknown 09/02/2015 4:58 PM TAXI DRIVER SUPERVISOR 09/02/2015 4:58 PM TAXI DRIVER SUPERVISOR Narrative [facility] - 09/03/2015 4:28 PM TAXI DRIVER SUPERVISOR Antibodies to HCV not detected; does not exclude the possibility of exposure to HCV. Cooper Diamond MD SEND OUTS [facility] [address] [place] [address], from Last 3 Months or Most Recently Relevant to Health Maintenance Advance Directives * Full Code (Latest Code Status on File) Date Activated Date Inactivated Comments 11/03/2015 5:12 PM 11/04/2015 6:22 PM * Full Code Date Activated Date Inactivated Comments 11/03/2015 9:46 AM 11/03/2015 5:12 PM * Full Code Date Activated Date Inactivated Comments 06/13/2012 10:20 AM 06/13/2012 10:25 AM Care Teams Debarker Operator Relationship Specialty Start Date End Date Cooper Diamond MD [address] [place] [address] PCP - General Family Practice 08/23/15 [facility] 07/23/12
[2024-03-25 23:29] LABS: Appearance Urine Clear (Clear); Bilirubin Urine Negative (Negative); Blood Urine Negative (Negative); Color Urine Yellow (Yellow); Glucose Urine Negative (Negative); Ketones Urine Negative (Negative); Leukocyte Esterase Urine Negative (Negative); Nitrite Urine Negative (Negative); Protein Urine Negative (Negative); Specific Gravity Urine 1.015 (1.000-1.030); Urobilinogen Urine 0.2 (0.2-1.0); pH Urine 5.5 (5.0-8.5)
[2024-03-25 23:37] LABS: Bacteria Urine Few; RBC Urine 0-2 (0-2); Squamous Epithelial Cell Urine Moderate (None-Few); WBC Urine 0-2 (0-5)
[2024-03-25] MEDS: 0.9 % SODIUM CHLORIDE 1000 ml 1,000 ML IV (23:37)
[2024-03-25] MEDS: LORazepam 1 MG TABLET PO (23:37)
[2024-03-25 23:41] LABS: Hemoglobin* 14.9 gm/dL (12.0-16.0)
[2024-03-25] MEDS: IBUPROFEN 400 MG TABLET 800 MG PO (23:54)
[2024-03-25 23:55] LABS: Albumin* 5.1 g/dL (3.3-5.0); Chloride* 97 mmol/L (96-114)
[2024-03-25 23:56] LABS: Potassium* 3.2 mmol/L (3.6-5.1); Sodium* 138 mmol/L (135-149)
[2024-03-25 23:58] LABS: Alkaline Phosphatase* 106 U/L (40-150); Anion Gap 13 mEq/L (7-15); Aspartate Amino Transferase* 50 U/L (12-35); Bilirubin Direct* 0.2 mg/dL (0.0-0.5); Bilirubin Total* 1.1 mg/dL (0.1-1.5); Blood Urea Nitrogen* 22 mg/dL (7-30); Carbon Dioxide* 28 mmol/L (20-32); Creatinine* 0.9 mg/dL (0.5-1.5); Est. Creatinine Clearance* 52.57; Estimated Glomerular Filt Rate 73 ml/min; Total Protein* 8.2 g/dL (6.0-8.3)
[2024-03-25 23:59] LABS: Alanine Aminotransferase* 80 U/L (4-35); Calcium* 10.8 mg/dL (8.4-10.6); Glucose* 134 mg/dL (60-115); Magnesium* 1.9 mg/dL (1.5-2.6)
[2024-03-26] LABS: Ethanol* < 0.01 % (0.01-0.03)
[2024-03-26 00:10] LABS: NT Pro B Type NatriureticPept* < 20 pg/mL
== END 2024-03-26 01:35 | disposition home or self-care (01) ==
PROVIDERS: Emergency Provider Family Medicine
DX: F43.9 Reaction to severe stress, unspecified (principal); F41.9 Anxiety disorder, unspecified; G47.00 Insomnia, unspecified; H60.92 Unspecified otitis externa, left ear
CPT/HCPCS: 36415; 80048; 80076; 81001; 82077; 83735; 83880; 85018; 87086; 99284; A9270; J7030